=== PATIENT | female | born 1965 | race Caucasian/White ===

== ENCOUNTER 2025-02-17 05:38 | Emergency (ER) | payer BC ==
[~2025-02-17] VITALS: Ht 167.6 cm; Wt 102.6 kg
[2025-02-17] MEDS ORDERED: WELLBUTRIN SR100 MG PO (05:55)
[2025-02-17] MEDS ORDERED: PAROXETINE HCL20 MG PO (05:55)
[2025-02-17] MEDS ORDERED: OZEMPIC0.25 MG/02 SQ (05:56)
[2025-02-17] MEDS ORDERED: ondansetron HCL 4 MG/2 ML VIAL IV ONE ×2 (06:00→07:45)
[2025-02-17 06:10] LABS: BASOPHILS 0.5 % (0.1-1.2); EOSINOPHILS 0.2 % (0.7-5.8); HEMATOCRIT 43.9 % (34.1-44.9); HEMOGLOBIN 14.7 g/dL (11.2-15.7); LYMPHOCYTES 13.4 % (19.3-51.7); MCH 29.1 PG (25.6-32.2); MCHC 33.5 g/dL (32.2-35.5); MCV 86.9 fL (79.4-94.8); MONOCYTES 6.5 % (4.7-12.5); NEUTROPHILS 78.9 % (34.0-71.1); PLATELET COUNT 316 K/uL (182-369); RBC 5.05 M/uL (3.93-5.22)
[2025-02-17] MEDS ORDERED: CEFTRIAXONE SODIUM 2 GM in SODIUM CHLORIDE 0.9% 100 ML IV ONE (06:15)
[2025-02-17] MEDS ORDERED: fentaNYL citrate 100 MCG/2 ML VIAL IV ONE (06:15)
[2025-02-17 06:27] LABS: ALBUMIN 3.9 g/dL (3.4-5.0); ALBUMIN/GLOBULIN RATIO 0.89 (1.1-2.4); ANION GAP 16.8 (7-21); BILIRUBIN, TOTAL 0.4 mg/dL (0.2-1.0); BUN/CREATININE RATIO 17.69 (6.0-28.6); CALCIUM 8.9 mg/dL (8.5-10.1); CREATININE, SERUM 1.13 mg/dL (0.55-1.02); MAGNESIUM 2.1 mg/dL (1.8-2.4); POTASSIUM 3.8 mmol/L (3.5-5.1); PROTEIN, TOTAL 8.3 g/dL (6.4-8.2)
[2025-02-17] MEDS ORDERED: LACTATED RINGER'S 1,000 ML IV ONE (06:45)
[2025-02-17 06:47] LABS: LACTIC ACID, BLOOD 0.4 mmol/L (0.4-2.0)
[2025-02-17 07:03] LABS: ABO A
[2025-02-17 07:04] LABS: ANTIBODY SCREEN NEGATIVE; RH POSITIVE
[2025-02-17] MEDS ORDERED: metroNIDAZOLE 250 MG TAB PO ONE (07:15)
[2025-02-17 07:36] LABS: BILIRUBIN, URINE NEGATIVE (negative); BLOOD/HGB, URINE SMALL (Negative); KETONE, URINE SMALL (Negative); LEUK ESTERASE, URINE NEGATIVE (negative); NITRITE, URINE NEGATIVE (negative)
[2025-02-17 07:42] LABS: BACTERIA, URINE NONE SEEN /hpf (negative); CASTS, URINE NONE SEEN \\lpf; COLLECTION TYPE, URINE CLEAN CATCH; CRYSTALS, URINE NONE SEEN (0-1+); EPITHELIAL CELLS, URINE SQUAMOUS 1+ /lpf (0-1+); REFLEX CULTURE, URINE No (No)
[2025-02-17] MEDS ORDERED: MORPHINE SULFATE 4 MG/ML VIAL IV ONE (07:45)
[2025-02-17] MEDS ORDERED: HYDROCODON-ACE1 EA10 PO (09:10)
[2025-02-17] MEDS ORDERED: METRONIDAZOLE500 MG PO (09:10)
[2025-02-17] MEDS ORDERED: CIPRO500 MG PO (09:10)
[2025-02-17] MEDS ORDERED: ONDANSETRON ODT4 MG PO (09:24)
[2025-02-17 09:26] VITALS: BP 147/85
== END 2025-02-17 09:26 | disposition home or self-care (01) ==
LOC: ED 05:38
PROVIDERS: Internal Medicine
DX: K52.9 Noninfective gastroenteritis and colitis, unspecified (principal); K62.5 Hemorrhage of anus and rectum; E11.9 Type 2 diabetes mellitus without complications; Z79.899 Other long term (current) drug therapy
CPT/HCPCS: 36415; 74177; 80053; 81001; 83605; 83690; 83735; 84484; 85025; 86850; 86900; 86901; 87040; 96375; 96376; 99284-25; J0696; J2270; J2405; J3010; J7121; Q9967